=== PATIENT | male | born 1940 | race Caucasian/White ===

== ENCOUNTER 2020-07-12 18:16 | Inpatient (IN) | payer MEDICARE, OTHER ==
[~2020-07-12] VITALS: Ht 157.5 cm; Wt 58.1 kg
[~2020-07-12 18:16] MED LIST: ATOR10TA PO; CILO100T PO; CLOP75TA15 PO; DONE10TA44 PO; ESCI10TA PO; HEPA50008 SQ; LACT-246 PO; MEGE40TA7 PO; MELO-107 PO; MEMA5TAB42 PO; OLAN5TAB6 PO; PANT40TA49 PO; TAMS-12 PO; ZOLP5TAB8 PO
[2020-07-12] MEDS ORDERED: IV NS 0.9% 1,000 ML IV ONE (19:00)
[2020-07-12] MEDS ORDERED: ACETAMINOPHEN ES 500 MG TABLET PO ONE (19:00)
--- NOTE | 2020-07-12 19:02 | NUR ---
BIBFAMILY FROM HOME TO ER BED 6. AAOX4. NOT IN RESP DISTRESS, BREATHING EVEN AND UNLABORED. AMBULATORY. BROUGHT IN FOR FEELING WEAK, CHILLS, BODY ACHE AND TROUBLE TALKING. PT IS MALAYSIAN SPEAKING WITH FAMILY AT BEDSIDE. PT IS NOTED WITH ORAL TEMP OF 100.1. DENIES ANY COUGH. NO NEURO DEFICIT NOTED. PT IS FAMILY ALSO VERBALIZING THAT HIS BP IS LOW BUT NOTE BP AT 115/59. MD WAS AT THE BEDSIDE FOR EVAL. ORDERS RECEIVED, NOTED AND CARRIED OUT. IV LINE ESTABLISHED ON R HAND 20G, BLOOD DRAWN AND SENT TO LAB. PT ON MONITOR
[2020-07-12] MEDS ORDERED: ACETAMINOPHEN ES 500 MG TABLET ONE (19:03)
[2020-07-12 19:24] LABS: BILIRUBIN,URINE NEGATIVE (NEGATIVE); COLOR,URINE YELLOW (YELLOW); LEUKOCYTE ESTERASE ,URINE NEGATIVE (NEGATIVE); NITRITE, URINE NEGATIVE (NEGATIVE); PH,URINE 5.5 (5.0-8.0); PROTEIN,URINE NEGATIVE (NEGATIVE); UGLUCOSE NEGATIVE (NEGATIVE); UROBILINOGEN,URINE 0.2 EU/dL (0.2)
[2020-07-12 19:25] LABS: CALCIUM, SERUM 8.5 mg/dL (8.5-10.1); CARBON DIOXIDE 26 mmol/L (21-32); CHLORIDE 103 mmol/L (98-107); GLUCOSE 121 mg/dL (74-106); POTASSIUM 4.2 mmol/L (3.5-5.1); SODIUM SERUM 137 mmol/L (136-145); UREA NITROGEN, BLOOD 14 mg/dL (7-18)
[2020-07-12 19:32] LABS: ALANINE AMINOTRANSFERASE 9 U/L (12-78); ALBUMIN 2.6 g/dL (3.4-5.0); ALKALINE PHOSPHATASE 92 U/L (46-116); ASPARTATE AMINOTRANSFERASE 26 U/L (15-37); BILIRUBIN,DIRECT 0.1 mg/dL (0.0-0.2); BILIRUBIN,TOTAL 0.4 mg/dL (0.2-1.0); TOTAL PROTEIN, SERUM 6.5 g/dL (6.4-8.2)
[2020-07-12 19:56] LABS: BASOPHILS % (AUTO) 0.4 % (0.0-2.0); EOSINOPHILS % (AUTO) 0.7 % (0.0-6.0); HEMATOCRIT 30 % (39-51); HEMOGLOBIN 9.8 g/dL (13.5-17.5); LYMPHOCYTES # (AUTO) 1.2 /CMM (0.8-4.8); LYMPHOCYTES % (AUTO) 14.8 % (20.0-44.0); MEAN CORPUSCULAR HGB CONC 33 g/dl (31.0-36.0); MEAN CORPUSCULAR VOLUME 95 fL (80-96); MONOCYTES # (AUTO) 0.5 /CMM (0.1-1.30); MONOCYTES % (AUTO) 5.7 % (2.0-12.0); NEUTROPHILS # (AUTO) 6.3 /CMM (1.8-8.9); NEUTROPHILS % (AUTO) 78.4 % (43.0-81.0); PLATELET COUNT (AUTO) 213 /CMM (150-450); RED BLOOD CELL COUNT(AUTO) 3.13 MIL/uL (4.5-6.0); WHITE BLOOD COUNT (AUTO) 8.1 K/uL (4.3-11.0)
[2020-07-12] MEDS ORDERED: PIPERACILLIN /TAZOBACTAM 3.375 G in IV D5W 50 ML IV ONE (20:00)
[2020-07-12] MEDS ORDERED: VANCOMYCIN 1 GM in IV D5W 250 ML IV ONE (20:00)
[2020-07-12] MEDS ORDERED: VANCOMYCIN 1 GM VIAL ONE ×2 (20:16→20:21)
[2020-07-12] MEDS ORDERED: PIPERACILLIN /TAZOBACTAM 3.375 G VIAL IV ONE ×2 (20:16→23:28)
[2020-07-12] MEDS ORDERED: IV NS 0.9% 500 ML BAG IV ONE (21:00)
--- NOTE | 2020-07-12 21:13 | NUR ---
report given to tg godoy for emma
--- NOTE | 2020-07-12 21:28 | NUR ---
pt transported to unit on gurney with emt and rn at bedside w/ acls protocol. nad noted during transport
[2020-07-12 21:30] VITALS: BP 113/61
[2020-07-12] MEDS ORDERED: Z GUARD REMEDY 2 OZ OINT TP PRN (21:30)
[2020-07-12] MEDS ORDERED: MAG HYDROX/AL HYDROX/SIMETH 30 ML UDC PO PRN (21:30)
[2020-07-12] MEDS ORDERED: MAGNESIUM HYDROXIDE 30 ML UDC PO PRN (21:30)
[2020-07-12] MEDS ORDERED: HYDROCODONE/APAP 5/325MG TABLET PO PRN (21:30)
[2020-07-12] MEDS ORDERED: ZOLPIDEM TARTRATE 5 MG TABLET PO PRN (21:30)
[2020-07-12] MEDS ORDERED: IV NS 0.9% 1,000 ML IV PRN (21:30)
[2020-07-12] MEDS ORDERED: ONDANSETRON HCL/PF 4 MG/2 ML VIAL IVP PRN (21:30)
[2020-07-12] MEDS ORDERED: ACETAMINOPHEN 325 MG TABLET PO PRN (21:30)
--- NOTE | 2020-07-12 21:30 | NUR ---
YARN CONDITIONER ADMITTING NOTE PATIENT A/OX4; DANISH SPEAKING; ABLE TO MAKE NEEDS KNOWN. ON 4L VIA N/C TOLERATING WELL WITH NO SOB. EXTERNAL MOLD REPAIRER READS SINUS RHYTHM AT 70'S. DENIES PAIN OR DISCOMFORT AT THIS TIME. RIGHT HAND #20G INFUSING NS @ 75ML/HR; PATENT AND INTACT. SKIN IS INTACT. ALL BELONGINGS ACCOUNTED FOR AND RN SIGNED PATIENT BELONGINGS LIST. ORIENTED PATIENT TO STAFF, ROOM, AND UNIT. SAFETY MEASURES IN PLACE: BED IN LOWEST LOCKED POSITION, SIDE RAILS UP X2, CALL LIGHT WITHIN EASY REACH, BED ALARMS ON. PATIENT IS IN STABLE CONDITION, WILL CONTINUE PLAN OF CARE.
[2020-07-12] MEDS: ZOSYN IVPB 3.375 G in IV D5W 50ml IV SCH (23:31)
[2020-07-13] VITALS: BP 100/58
[2020-07-13 04:00] VITALS: BP 122/58
[2020-07-13] MEDS ORDERED: PIPERACILLIN /TAZOBACTAM 3.375 G VIAL IV ONE (05:25)
[2020-07-13] MEDS: ZOSYN IVPB 3.375 G in IV D5W 50ml IV SCH (05:27)
[2020-07-13 06:11] LABS: BASOPHILS % (AUTO) 0.6 % (0.0-2.0); EOSINOPHILS % (AUTO) 2.8 % (0.0-6.0); HEMATOCRIT 28 % (39-51); LYMPHOCYTES # (AUTO) 1.4 /CMM (0.8-4.8); LYMPHOCYTES % (AUTO) 25.8 % (20.0-44.0); MEAN CORPUSCULAR HGB CONC 33 g/dl (31.0-36.0); MEAN CORPUSCULAR VOLUME 97 fL (80-96); MONOCYTES # (AUTO) 0.3 /CMM (0.1-1.30); MONOCYTES % (AUTO) 5.7 % (2.0-12.0); NEUTROPHILS # (AUTO) 3.6 /CMM (1.8-8.9); NEUTROPHILS % (AUTO) 65.1 % (43.0-81.0); PLATELET COUNT (AUTO) 164 /CMM (150-450); RED BLOOD CELL COUNT(AUTO) 2.86 MIL/uL (4.5-6.0); WHITE BLOOD COUNT (AUTO) 5.5 K/uL (4.3-11.0)
--- NOTE | 2020-07-13 06:48 | NUR ---
SAFETY AND HEALTH CONSULTANT CLOSING NOTE PATIENT A/OX4; CONGOLESE SPEAKING; ABLE TO MAKE NEEDS KNOWN. ON ROOM AIR TOLERATING WELL WITH NO SOB. EXTERNAL CHEMICAL TREATMENT PLANT TECHNICIAN READS SINUS RHYTHM AT 70'S. DENIES PAIN OR DISCOMFORT AT THIS TIME. RIGHT HAND #20G INFUSING NS @ 75ML/HR; PATENT AND INTACT. SKIN IS INTACT. SAFETY MEASURES IN PLACE: BED IN LOWEST LOCKED POSITION, SIDE RAILS UP X2, CALL LIGHT WITHIN EASY REACH, BED ALARMS ON. PATIENT IS IN STABLE CONDITION, WILL ENDORSE PLAN OF CARE TO ONCOMING MORNING RN.
[2020-07-13 07:05] LABS: BILIRUBIN,TOTAL 0.5 mg/dL (0.2-1.0); CALCIUM, SERUM 7.8 mg/dL (8.5-10.1); MAGNESIUM 1.4 mg/dL (1.8-2.4); PHOSPHORUS 4.3 mg/dL (2.5-4.9); POTASSIUM 4.1 mmol/L (3.5-5.1); TOTAL PROTEIN, SERUM 5.4 g/dL (6.4-8.2)
--- NOTE | 2020-07-13 08:00 | NUR ---
RN OPENING NOTE PATIENT AWAKE IN BED. A/O X3 AND LITHUANIAN SPEAKING. NO COMPLAINT OF PAIN OR NAUSEA. CURRENTLY ON RA WITH NO SOB OR RESPIRATORY DISTRESS PRESENT. ON SHANK BONER. SELF AMBULATORY WITH URINAL AT THE BEDSIDE. NO EDEMA PRESENT. SKIN IS INTACT. HL PRESENT ON R HAND 20G AND FLUSHES WELL. SAFETY MEASURES IN PLACE. SIDE RAILS RAISED. BED LOWERED. CALL LIGHT WITHIN REACH. WILL CONTINUE TO MONITOR.
[2020-07-13] MEDS: PANTOPRAZOLE 40 MG TABLET.DR PO SCH (08:20)
[2020-07-13] MEDS: ATORVASTATIN 10 MG TABLET PO SCH (08:20)
[2020-07-13] MEDS: CLOPIDOGREL BISULFATE 75 MG TABLET PO SCH (08:20)
[2020-07-13] MEDS: ENSURE ENLIVE 237 ML LIQUID (VANILLA) PO SCH ×2 (08:20→17:26)
[2020-07-13] MEDS: MEMANTINE HCL 5 MG TABLET PO SCH (08:20)
[2020-07-13] MEDS: TAMSULOSIN 0.4 MG CAP.SR.24H PO SCH (08:20)
[2020-07-13] MEDS: CILOSTAZOL 100 MG TABLET PO SCH (08:20)
[2020-07-13] MEDS: VANCOMYCIN 0.75 GM in IV D5W 250 ML IV SCH ×2 (08:24→21:04)
[2020-07-13] MEDS: HEPARIN SODIUM, PORCINE 5000 UNITS/1 ML VIAL SQ SCH ×2 (08:35→21:12)
[2020-07-13 08:47] VITALS: BP 109/58
[2020-07-13] MEDS ORDERED: PIPERACILLIN /TAZOBACTAM 3.375 G in IV D5W 100 ML IV SCH (10:00)
[2020-07-13] MEDS: Magnesium 1GM/D5W 100ML PREMIX 100 ML IV SCH ×2 (10:14→12:55)
[2020-07-13] MEDS: PIPERACILLIN /TAZOBACTAM 3.375 G in IV D5W 50 ML IV SCH ×2 (11:51→17:16)
[2020-07-13 12:17] VITALS: BP 103/45
--- NOTE | 2020-07-13 13:48 | NUR ---
Yardage Tufting Machine Operator note: legal services manager requested to confirm the patient's code status (full code vs DNR/DNI). SW faxed medical record request to obtain POLST from patient's care facility ([facility]; ph: [phone] fax: [phone]) that he was discharged to on 06/02/2020 on his last admission.
[2020-07-13 14:51] LABS: IRON, SERUM 51 ug/dl (50-175); TOTAL IRON BINDING CAPACITY 135 ug/dl (250-450)
[2020-07-13 15:04] LABS: FERRITIN 71 ng/mL (8-388)
--- NOTE | 2020-07-13 15:55 | NUR ---
Invisible Braces Orthodontist note: SARIKA attempted to contact patient's nephew Man @ [phone]. SARIKA was unable to speak to Man as his voicemail box was full. SARIKA contacted Alcon @ [phone]. Alcon stated he is the patient's cousin. SARIKA asked Alcon about patient's code status (full code v. DNR/DNI). Alcon stated DNR/DNI.
--- NOTE | 2020-07-13 16:00 | NUR ---
Industrial Laborer note: SW notified RN Quintin of patient's code status change to DNR/DNI.
[2020-07-13 16:13] VITALS: BP 131/62
--- NOTE | 2020-07-13 18:14 | NUR ---
RN CLOSING NOTE PATIENT AWAKE IN BED. A/O X3 AND ESTONIAN SPEAKING. NO COMPLAINT OF PAIN OR NAUSEA. CURRENTLY ON RA WITH NO SOB OR RESPIRATORY DISTRESS PRESENT. ON TRAP SETTER. SELF AMBULATORY WITH URINAL AT THE BEDSIDE. NO EDEMA PRESENT. SKIN IS INTACT. HL PRESENT ON R HAND 20G AND FLUSHES WELL. ROUTINE MEDS GIVEN. SAFETY MEASURES IN PLACE. SIDE RAILS RAISED. BED LOWERED. CALL LIGHT WITHIN REACH. REPORT TO BE GIVEN TO NIGHT NURSE FOR TRACI.
--- NOTE | 2020-07-13 19:25 | NUR ---
RN NOTES PATIENT AWAKE IN BED. A/O X3 AND BRITISH SPEAKING. NO COMPLAINT OF PAIN OR NAUSEA. CURRENTLY ON RA WITH NO SOB OR RESPIRATORY DISTRESS PRESENT. ON INFORMATICS COORDINATOR. SELF AMBULATORY WITH URINAL AT THE BEDSIDE. NO EDEMA PRESENT. SKIN IS INTACT. HL PRESENT ON R HAND 20G AND FLUSHES WELL. SAFETY MEASURES IN PLACE. SIDE RAILS RAISED. BED LOWERED. CALL LIGHT WITHIN REACH. WILL CONTINUE TO MONITOR.
[2020-07-13 19:55] LABS: OCCULT BLOOD STOOL NEGATIVE (NEGATIVE)
[2020-07-13 20:00] VITALS: BP 149/60
[2020-07-13] MEDS ORDERED: CEFTRIAXONE 1 G in IV D5W 50 ML IV SCH (21:30)
[2020-07-13] MEDS ORDERED: CEFTRIAXONE 1 G VIAL ONE (22:14)
[2020-07-14] VITALS: BP 153/71
[2020-07-14 04:00] VITALS: BP 119/73
--- NOTE | 2020-07-14 04:49 | NUR ---
RN NOTES PT PULLED OUT IV. ATTEMPTED TO REINSERT PT REFUSED X3 RISK AND BENEFITS EXPLAINED X3 WILL TRY AGAIN LATER.
--- NOTE | 2020-07-14 06:14 | NUR ---
RN NOTES PT STILL REFUSING IV INSERTION RISK AND BENEFITS EXPLAINED X 3 REFUSED X 3 WILL ENDORSE TO DAY SHIFT NURSE.
--- NOTE | 2020-07-14 06:31 | NUR ---
RN NOTES PATIENT AWAKE IN BED. A/O X3 AND LUXEMBOURGER SPEAKING. NO COMPLAINT OF PAIN OR NAUSEA. CURRENTLY ON RA WITH NO SOB OR RESPIRATORY DISTRESS PRESENT. ON CARDIOLOGY FELLOW. NO EDEMA PRESENT. SKIN IS INTACT. HL PRESENT ON R HAND 20G AND FLUSHES WELL.SAFETY MEASURES IN PLACE. SIDE RAILS RAISED. BED LOWERED. CALL LIGHT WITHIN REACH. WILL ENDORSE CARE TO DAY SHIFT NURSE.
[2020-07-14 06:44] VITALS: BP 149/73
[2020-07-14 06:54] LABS: BASOPHILS # (AUTO) 0.1 /CMM (0.0-0.2); EOSINOPHILS % (AUTO) 3.3 % (0.0-6.0); HEMATOCRIT 34 % (39-51); HEMOGLOBIN 10.9 g/dL (13.5-17.5); LYMPHOCYTES # (AUTO) 1.7 /CMM (0.8-4.8); LYMPHOCYTES % (AUTO) 29.5 % (20.0-44.0); MEAN CORPUSCULAR HGB CONC 32 g/dl (31.0-36.0); MEAN CORPUSCULAR VOLUME 95 fL (80-96); MONOCYTES # (AUTO) 0.3 /CMM (0.1-1.30); MONOCYTES % (AUTO) 6.1 % (2.0-12.0); NEUTROPHILS # (AUTO) 3.4 /CMM (1.8-8.9); NEUTROPHILS % (AUTO) 60.1 % (43.0-81.0); PLATELET COUNT (AUTO) 217 /CMM (150-450); RED BLOOD CELL COUNT(AUTO) 3.56 MIL/uL (4.5-6.0); WHITE BLOOD COUNT (AUTO) 5.6 K/uL (4.3-11.0)
--- NOTE | 2020-07-14 07:25 | NUR ---
RN OPENING NOTE PATIENT AWAKE IN BED. A/O X3 AND CZECH SPEAKING. NO COMPLAINT OF PAIN OR NAUSEA. CURRENTLY ON RA WITH NO SOB OR RESPIRATORY DISTRESS PRESENT. ON FIRE REGULATOR. SELF AMBULATORY WITH URINAL AT THE BEDSIDE. NO EDEMA PRESENT. SKIN IS INTACT. HL REMOVED BY PATIENT AND PATIENT REFUSES NEW IV INSERTIONS. CHARGE NURSE NOTIFIED. SAFETY MEASURES IN PLACE. SIDE RAILS RAISED. BED LOWERED. CALL LIGHT WITHIN REACH. WILL CONTINUE TO MONITOR.
[2020-07-14 07:29] LABS: CALCIUM, SERUM 9.2 mg/dL (8.5-10.1); POTASSIUM 4.2 mmol/L (3.5-5.1)
[2020-07-14 08:00] VITALS: BP 110/62
[2020-07-14] MEDS: TAMSULOSIN 0.4 MG CAP.SR.24H PO SCH (09:19)
[2020-07-14] MEDS: CILOSTAZOL 100 MG TABLET PO SCH (09:19)
[2020-07-14] MEDS: ATORVASTATIN 10 MG TABLET PO SCH (09:19)
[2020-07-14] MEDS: CLOPIDOGREL BISULFATE 75 MG TABLET PO SCH (09:19)
[2020-07-14] MEDS: PANTOPRAZOLE 40 MG TABLET.DR PO SCH (09:19)
[2020-07-14] MEDS: MEMANTINE HCL 5 MG TABLET PO SCH (09:19)
[2020-07-14] MEDS: ENSURE ENLIVE 237 ML LIQUID (VANILLA) PO SCH (09:19)
[2020-07-14] MEDS: HEPARIN SODIUM, PORCINE 5000 UNITS/1 ML VIAL SQ SCH (09:23)
--- NOTE | 2020-07-14 15:19 | NUR ---
TORCH HEATER NOTE PATIENT DISCHARGED HOME WITH FAMILY VIA PRIVATE CAR. EXITCARE UTILIZED AND EDUCATION GIVEN TO PATIENT. F/U WITH PCP WITHIN ONE WEEK EDUCATION GIVEN. CONTINUE ALL HOME MEDS. HL REMOVED. ID BAND REMOVED. V/S STABLE
== END 2020-07-14 15:15 | disposition home or self-care (01) | DRG 871 ==
LOC: ER 18:22 → TELE 20:57
PROVIDERS: ADMIT Nurse Practitioner Acute Care; ATTEND Nurse Practitioner Acute Care
DX: A41.9 Sepsis, unspecified organism (principal); E43 Unspecified severe protein-calorie malnutrition; E87.2 Acidosis; J90 Pleural effusion, not elsewhere classified; N39.0 Urinary tract infection, site not specified; D63.8 Anemia in other chronic diseases classified elsewhere; F03.90 Unspecified dementia, unspecified severity, without behavioral disturbance, psychotic disturbance, mood disturbance, and anxiety; F32.9 Major depressive disorder, single episode, unspecified; N40.0 Benign prostatic hyperplasia without lower urinary tract symptoms; Z20.822 Contact with and (suspected) exposure to COVID-19; I10 Essential (primary) hypertension; Z80.0 Family history of malignant neoplasm of digestive organs; Z85.028 Personal history of other malignant neoplasm of stomach; Z90.3 Acquired absence of stomach [part of]; Z92.21 Personal history of antineoplastic chemotherapy; Z92.3 Personal history of irradiation; Z79.01 Long term (current) use of anticoagulants; Z79.02 Long term (current) use of antithrombotics/antiplatelets; Z79.899 Other long term (current) drug therapy; Z86.73 Personal history of transient ischemic attack (TIA), and cerebral infarction without residual deficits; F10.11 Alcohol abuse, in remission; Y90.9 Presence of alcohol in blood, level not specified; E78.00 Pure hypercholesterolemia, unspecified; E83.42 Hypomagnesemia
CPT/HCPCS: 36415; 70450-TC; 71045-TC; 80048-TC; 80053-TC; 80061-TC; 80076-TC; 80202-TC; 82272-TC; 82378; 82550-TC; 82728-TC; 83540-TC; 83605-TC; 83735-TC; 84100-TC; 84484-TC; 85025-TC; 85730-TC; 87040-TC; 87081-TC; 92526; 92611-TC; 97116-TC; 97530-TC; C9803; G0378; J0696; J1644; J2543; J3370; J3475; J7030; J7060

== ENCOUNTER 2022-05-23 12:23 | Emergency (ER) | payer MEDICARE, OTHER ==
[~2022-05-23] VITALS: Ht 157.5 cm; Wt 53.1 kg
[2022-05-23] MEDS ORDERED: LIDOCAINE 2% JEL UROJET 10 ML MM ONE (12:38)
--- NOTE | 2022-05-23 12:41 | NUR ---
IV ESTABLISHED R AC 20G. LABS DRAWN AND COLLECTED AT BEDSIDE.
--- NOTE | 2022-05-23 12:51 | NUR ---
bennett catheter place, 1500cc urine output.
--- NOTE | 2022-05-23 12:58 | NUR ---
urine collected and sent
[2022-05-23 13:06] LABS: BASOPHILS # (AUTO) 0.1 K/uL (0.0-0.2); BASOPHILS % (AUTO) 0.6 % (0.0-2.0); EOSINOPHILS % (AUTO) 0.4 % (0.0-6.0); HEMATOCRIT 40 % (39-51); HEMOGLOBIN 12.4 g/dL (13.5-17.5); LYMPHOCYTES # (AUTO) 1.5 K/uL (0.8-4.8); LYMPHOCYTES % (AUTO) 12.6 % (20.0-44.0); MEAN CORPUSCULAR HGB CONC 31 g/dl (31.0-36.0); MEAN CORPUSCULAR VOLUME 96 fL (80-96); MONOCYTES # (AUTO) 0.7 K/uL (0.1-1.30); MONOCYTES % (AUTO) 6.4 % (2.0-12.0); NEUTROPHILS # (AUTO) 9.3 K/uL (1.8-8.9); PLATELET COUNT (AUTO) 245 K/uL (150-450); RED BLOOD CELL COUNT(AUTO) 4.16 MIL/uL (4.5-6.0); WHITE BLOOD COUNT (AUTO) 11.6 K/uL (4.3-11.0)
[2022-05-23 13:23] LABS: BILIRUBIN,URINE NEGATIVE (NEGATIVE); COLOR,URINE YELLOW (YELLOW); LEUKOCYTE ESTERASE ,URINE NEGATIVE (NEGATIVE); NITRITE, URINE NEGATIVE (NEGATIVE); PROTEIN,URINE NEGATIVE (NEGATIVE); UGLUCOSE NEGATIVE (NEGATIVE); UROBILINOGEN,URINE 0.2 EU/dL (0.2)
[2022-05-23 13:34] LABS: ALBUMIN 3.9 g/dL (3.4-5.0); BILIRUBIN,DIRECT 0.3 mg/dL (0.0-0.2); BILIRUBIN,TOTAL 1.2 mg/dL (0.2-1.0); CALCIUM, SERUM 9.4 mg/dL (8.5-10.1); POTASSIUM 3.9 mmol/L (3.5-5.1); TOTAL PROTEIN, SERUM 8.1 g/dL (6.4-8.2)
[2022-05-23 15:54] VITALS: BP 135/66
--- NOTE | 2022-05-23 15:55 | NUR ---
Patient discharged to home in stable condition. Written and verbal after care instructions given. Patient verbalizes understanding of instruction.IV removed. Catheter intact and site benign. Pressure and 4x4 applied to site. No bleeding noted.
== END 2022-05-23 15:54 | disposition home or self-care (01) ==
LOC: ER 12:27
DX: R33.9 Retention of urine, unspecified (principal); N40.1 Benign prostatic hyperplasia with lower urinary tract symptoms; I10 Essential (primary) hypertension; E78.5 Hyperlipidemia, unspecified; Z85.00 Personal history of malignant neoplasm of unspecified digestive organ; Z79.899 Other long term (current) drug therapy
CPT/HCPCS: 99284; 74176; 51702; 85025; 80048; 83690; 80076; 81003; 36415; J3490